=== PATIENT | female | born 1995 | race Caucasian/White ===

== ENCOUNTER 2020-08-06 18:19 | Observation (INO) | payer BC, OTHER ==
[~2020-08-06 18:19] MED LIST: PHENYLEPHRINE-NS 100 MCG/ML 10 ML SYRINGE ONE
[2020-08-06] MEDS ORDERED: hydrALAZINE 20 MG/ML VIAL SLOW IVP PRN (18:53)
[2020-08-06] MEDS ORDERED: Butorphanol Tartrate 1 MG/ML VIAL SLOW IVP PRN (18:54)
[2020-08-06] MEDS ORDERED: Lactated Ringer's 1,000 ML IV SCH (19:00)
[2020-08-06 19:25] LABS: #Eosinphils 0.1 thou/uL (0.0-0.7); #Lymphocytes 1.7 thou/uL (1.20-3.40); #Monocytes 0.6 thou/uL (0.11-0.59); #Neutrophils 8.8 thou/uL (1.40-6.50); %Basophils 0.3 % (0.0-1.0); %Eosinophils 0.5 % (0.0-10.0); %Lymphocytes 15.5 % (21.0-51.0); %Monocytes 5.4 % (0.0-10.0); %Neutrophils 78.3 % (42.0-75.0); Mean Corpuscular HGB CONC 34.6 g/dL (32.0-36.0); Mean Corpuscular Hemoglobin 30.9 pg (27.0-31.0); Mean Corpuscular Volume 89.2 fL (78.0-98.0); Mean Platelet Volume 8.3 fL (7.4-10.4); Platelet Count 226 thou/uL (130-400); RBC Distribution Width 12.3 % (11.5-14.5); Red Blood Cell (RBC) Count 3.89 mill/uL (4.20-5.40); White Blood Cell (WBC) Count 11.2 thou/uL (4.8-10.8)
[2020-08-06] MEDS ORDERED: Morphine 4 MG/ML VIAL SLOW IVP PRN (19:44)
[2020-08-06] MEDS: Lactated Ringer's 1,000 ML IV SCH (19:48)
[2020-08-06 19:54] VITALS: BMI 24.8
[2020-08-06 20:06] LABS: Bilirubin Negative (Negative); Blood, Urine Trace (Negative); Clarity Extra Turbid (Clear); Glucose, Urine (Dipstick) Normal (Negative); Ketone, Urine 20 mg/dL (Negative); Leukocyte Negative Leu/uL (Negative); Nitrite Negative (Negative); Protein, Urine (Dipstick) 20 mg/dL (Neg-Trace); RBC/HPF 0-3 HPF (0-3); Specific Gravity, Urine 1.019 (1.002-1.036); Squamous Epithelial 0-3 HPF (0-3); Urobilinogen Normal mg/dL (Less than 2); pH, Urine 7.5 (5.0-9.0)
[2020-08-06 20:17] LABS: Bacteria/HPF None Seen HPF (None Seen)
[2020-08-06] MEDS ORDERED: Promethazine HCl 12.5 MG in Sodium Chloride 0.9% 50 ML IVPB PRN (21:02)
[2020-08-06] MEDS: Morphine 4 MG/ML VIAL SLOW IVP PRN (21:04)
--- NOTE | 2020-08-06 21:06 | PDOC.LDHP ---
Labor and Delivery H&P Chief complaint: other (flank pain) HPI: 24 yo WF presents c/o severe flank pain since 5PM. +nausea, occ. dysuria. Denies bleeding or SROM. Current gestational age (weeks): 20 Due date: 12/20/20 Dating criteria: last menstrual period Grav: 2 Para: 1 Current complications: none (PNC with Dr. Simeon) Abnormal US findings: No Past Medical History: none Current medications: pre- vitamins Previous surgical history: low tranverse CS Allergies/Adverse Reactions: Allergies Allergy/AdvReac Type Severity Reaction Status Date / Time No Known Allergies Allergy Verified 01/20/14 04:07 Social history: none - Physical Exam Vital signs reviewed and normal: yes General: other (in severe pain) Heart: RRR Lungs: CTAB Abdomen: gravid Extremeties: trace edema [place] contractions every: 0 - Assessment 20 week IUP intractable flank pain USG shows R hydronephrosis with no ureteral jet - Plan Plan: other (Urology consult tonight- discussed by phone with Dr. Kennedy)
--- NOTE | 2020-08-06 21:08 | ULT ---
US Renal Bilateral STANDARD History: Pelvic pain Comparison: Renal ultrasound 2014 Findings: Moderate to severe right-sided hydronephrosis relatively similar to 2014. Urinary bladder appears unremarkable. No right-sided ureteral jet is visualized. Left-sided ureteral jet is present. Left kidney is without mass, hydronephrosis or abnormal calcifications. Impression: Moderate to severe right-sided hydronephrosis similar to 2014.
--- NOTE | 2020-08-06 21:10 | ULT ---
US OB Ltd History: Flank pain Comparison: None. Findings: Real-time grayscale, color and spectral analysis of the gravid uterus was performed. Normal single viable uterine with average ultrasound age 21 week 3 day with estimated date of delivery December 14, 2020. Estimated weight is 15 ounces, 84th percentile. Biometry: Biparietal diameter: 5.14 cm, 21 week 4 day Head circumference: 18.97 cm, 21 week 2 day Abdominal circumference: 16.87 cm, 21 week 6 day Femur length: 3.39 cm, 20 week 5 day Heart rate documented at 144 bpm. position is breech and the placenta is anterior. Cervix is closed and measures 3.5 cm in length. Impression: Normal single viable intrauterine .
--- NOTE | 2020-08-06 22:07 | CON ---
DATE OF CONSULTATION: 08/06/2020 REASON FOR CONSULTATION: Flank pain. CHIEF COMPLAINT: Flank pain. HISTORY OF PRESENT ILLNESS: This is a 24-year-old female 20 weeks with acute onset right-sided flank pain this evening, 10/10 with nausea. She presented to Labor and Delivery, where she was evaluated with ultrasound showing [id number] right hydronephrosis with no right ureteral jet. Normal left kidney with positive left ureteral jet. She continues to have severe pain despite narcotic medications with nausea. She denies fevers, dysuria, or hematuria. PAST MEDICAL HISTORY: Exercise-induced asthma. PAST SURGICAL HISTORY: None. . SOCIAL HISTORY: No substance abuse. MEDICATIONS: vitamins. REVIEW OF SYSTEMS: Twelve-point review of systems is negative except as mentioned above. ALLERGIES: NO KNOWN ALLERGIES. PHYSICAL EXAMINATION: VITAL SIGNS: Afebrile. Vitals are stable. GENERAL: The patient is in obvious distress, but does answer questions. HEENT: Head, normocephalic and atraumatic. Extraocular movements are intact. Sclerae are nonicteric. NECK: Supple. Trachea is midline. LUNGS: Unlabored breathing. Symmetric chest expansion. HEART: Regular rate and rhythm. ABDOMEN: Soft, nontender, nondistended. Gravid uterus. No appreciable flank tenderness or suprapubic tenderness. SKIN: Warm and dry. NEUROLOGIC: Alert and oriented x3. PSYCHIATRIC: Normal mood and affect. LABORATORY DATA: Reviewed. White count 11, hemoglobin 12. UA; no rbc's, negative leukocyte and nitrite. Ultrasound reviewed showing [id number] right- sided hydronephrosis. Prior US from 2013 showed B hydro ASSESSMENT AND PLAN: Right hydronephrosis, possible ureteral stone. Due to the fact that the patient's pain is uncontrolled with medications, we will be taking her to the operating room for cystoscopy with stent placement. We did discuss this in detail including alternatives, postop course, risks of bleeding, infection, pain, demise, inability to bypass the stone to place a stent, and need for further surgeries to remove stone. She expressed understanding and wishes to proceed. Job ID: [id number] [facility]
[2020-08-06] MEDS ORDERED: Iothalamate Meglumine 60% 50 ML VIAL FS ONE (22:09)
--- NOTE | 2020-08-06 22:50 | RAD ---
XR IVP Retrograde History: Right stent placement Comparison: Ultrasound same day Findings: Interval placement of a right-sided ureteral stent with moderate to severe hydronephrosis. Impression: Single fluoroscopic image for stent placement.
[2020-08-06] MEDS ORDERED: Promethazine HCl 25 MG/ML VIAL IM PRN (22:53)
[2020-08-06] MEDS ORDERED: Morphine Sulfate 2 MG/ML SYRINGE SLOW IVP PRN (22:53)
[2020-08-06] MEDS ORDERED: Promethazine HCl 25 MG/ML VIAL SLOW IVP PRN (22:53)
[2020-08-06] MEDS ORDERED: Ondansetron HCl/PF 4 MG/2 ML Vial IVP PRN (22:53)
--- NOTE | 2020-08-06 23:11 | OP ---
DATE OF PROCEDURE: 08/06/2020 PREOPERATIVE DIAGNOSIS: Right hydronephrosis. POSTOPERATIVE DIAGNOSIS: Right hydronephrosis. PROCEDURE: Cystoscopy with right retrograde pyelogram and 4.8 x 28 double-J ureteral stent placement. ANESTHESIA: Spinal. COMPLICATIONS: None. ESTIMATED BLOOD LOSS: None. SPECIMEN: None. DESCRIPTION OF PROCEDURE: After informed consent, the patient was brought to the operating room. Spinal anesthesia was established. She was then transferred to the table, prepped and draped in the lithotomy position. A time-out was performed showing correct patient, site, and procedure. Preoperative antibiotics were administered. I began by inserting the rigid cystoscope through the urethra into the bladder noting normal urethra and normal bladder mucosa. The right ureteral orifice was cannulated with a Pollack catheter and a retrograde pyelogram was performed showing normal ureter up to the mid ureter just above the iliac vessels with hydroureter with tortuous proximal ureter and significant right hydronephrosis. I had great difficulty obtaining access into the right kidney due to the tortuosity of the proximal ureter, but using a Sensor wire, Pollack catheter, Amplatz wire, I was able to access the kidney and placed a 4.8 x 28 double-J ureteral stent over the wire with a curl in the kidney and curl in the bladder under fluoroscopic guidance. Completion images were sent. Her bladder was then drained. She was awoken from anesthesia, transferred back to her hospital bed, taken to PACU in stable condition, where she will return to Labor and Delivery. Job ID: [id number]
[2020-08-07] MEDS ORDERED: Tamsulosin HCl 0.4 MG CAP PO SCH ×2 (00:15→21:00)
[2020-08-07] MEDS: Lactated Ringer's 1,000 ML IV SCH (01:01)
[2020-08-07] MEDS ORDERED: Sodium Chloride 0.9% 10 ML ONE ×2 (01:07→04:55)
[2020-08-07] MEDS: Morphine 4 MG/ML VIAL SLOW IVP PRN ×2 (01:10→05:06)
[2020-08-07 07:59] VITALS: BP 113/66; TEMP 97.8
--- NOTE | 2020-08-07 08:40 | PRG ---
DATE OF SERVICE: 08/07/2020 SUBJECTIVE: Right flank pain has almost completely resolved after stent placement. No fevers or nausea overnight. She reports minimal to no bladder irritation. Her Catalan catheter remains, which was placed due to her spinal anesthesia yesterday. OBJECTIVE: VITAL SIGNS: Afebrile, vitals stable. Good urine output. GENERAL: No acute distress. LUNGS: Unlabored breathing. ABDOMEN: Soft. No flank tenderness. No suprapubic tenderness. GENITOURINARY: Catalan catheter draining mildly hematuric urine. SKIN: Warm and dry. ASSESSMENT AND PLAN: Postoperative day #1, right ureteral stent placement for hydronephrosis secondary to either uterine obstruction or stone. Ready for discharge home. Okay to discharge from my standpoint. I will prescribe tamsulosin and Levsin for bladder irritation. I will see her in 3 weeks to begin planning stent exchange at 24 weeks' gestation. Job ID: [id number]
[2020-08-07 13:28] LABS: SARS-CoV-2 MS2 Positive; SARS-CoV-2 N Gene Negative; SARS-CoV-2 S Gene Negative; SARS-CoV-2 by NAA Not Detected (NotDetected); SARS-CoV-2 orf1ab Negative
--- NOTE | 2020-08-08 00:47 | DIS ---
DATE OF ADMISSION: 08/06/2020 DATE OF DISCHARGE: 08/07/2020 ADMITTING DIAGNOSES: 1. Intrauterine at 20 weeks. 2. Severe flank pain. DISCHARGE DIAGNOSIS: Right hydronephrosis with signs of obstruction resolved with stent placement. CONSULTATIONS: Urology. PROCEDURE: Right ureteral stent placement. HOSPITAL COURSE: The patient is a 24-year-old, G2, P1 female with an intrauterine at 20 weeks, presenting to the emergency room with concerns of acute onset severe flank pain. After evaluation, the patient was noted to have right hydronephrosis with no ureteral jets on imaging. With concerns of an obstructive process, Urology was consulted, who after evaluation recommended stent placement, which was done yesterday. Since placement of the stent, the patient reports her symptoms have nearly resolved or her pain is much improved. Urology is comfortable letting her go home at this point in time, now with tamsulosin and Levsin and instructions to follow up in the outpatient setting in three weeks. Vital signs today, temperature is 97.8, pulse is 77, blood pressure is 113/66, respiratory rate of 18, saturating 98% on room air. In general, she appears to be in no acute distress. She is alert, oriented, cooperative, and pleasant to interact with. She is being discharged home on the medications recommended by Dr. Kennedy, who has by report called these medications out already. She will follow up with Dr. Simeon, her primary OB, on as scheduled and with Dr. Kennedy in three weeks. Job ID: [id number]
== END 2020-08-07 12:21 | disposition home health service (06) ==
LOC: L&D/OP 18:19 → L&D 21:40 → 3SW 23:25
PROVIDERS: ADMIT Obstetrics & Gynecology; ATTEND Obstetrics & Gynecology
PROC: 0T768DZ Dilation of Right Ureter with Intraluminal Device, Via Natural or Artificial Opening Endoscopic (ICD-10-PCS; principal; 2020-08-07)
DX: O99.89 Other specified diseases and conditions complicating pregnancy, childbirth and the puerperium (principal); N13.30 Unspecified hydronephrosis; Z3A.20 20 weeks gestation of pregnancy; Z20.828 Contact with and (suspected) exposure to other viral communicable diseases
CPT/HCPCS: 51701; 74420; 76770; 76815; 81003; 81015; 85025; 87635; 96361; 96374; 96376; 99285; G0378; J0595; J2270; J2550; U0003

== ENCOUNTER 2020-08-31 15:46 | Outpatient (CLI) | payer BC, OTHER ==
[2020-09-01 12:52] LABS: SARS-CoV-2 MS2 Positive; SARS-CoV-2 N Gene Negative; SARS-CoV-2 S Gene Negative; SARS-CoV-2 by NAA Not Detected (NotDetected); SARS-CoV-2 orf1ab Negative
== END 2020-08-31 15:47 | disposition home or self-care (01) ==
LOC: LABBT 15:46
PROVIDERS: ATTEND Urology
DX: N20.1 Calculus of ureter (principal); Z20.828 Contact with and (suspected) exposure to other viral communicable diseases
CPT/HCPCS: 87635; U0003

== ENCOUNTER 2020-09-05 12:06 | Day surgery (SDC) | payer BC, OTHER ==
[2020-09-04 11:57] VITALS: BMI 24.2
[2020-09-05] MEDS ORDERED: Iothalamate Meglumine 60% 50 ML VIAL FS ONE (12:57)
--- NOTE | 2020-09-05 13:43 | RAD ---
EXAM: XR IVP Retrograde PROVIDED CLINICAL HISTORY: Right ureteral stent placement. COMPARISON: 08/06/2020 FINDINGS/IMPRESSION: Single provided image demonstrates a right ureteral stent in place. There is evidence of an intrauter ine gestation in breech presentation. Correlation with intraoperative findings is recommended.
[2020-09-05] MEDS ORDERED: Oxybutynin 5 MG TAB ONE (15:17)
--- NOTE | 2020-09-05 19:46 | OP ---
DATE OF PROCEDURE: 09/05/2020 PREOPERATIVE DIAGNOSIS: Right hydronephrosis. POSTOPERATIVE DIAGNOSIS: Right hydronephrosis. PROCEDURE PERFORMED: Cystoscopy with right ureteral stent exchange. ANESTHESIA: Spinal. COMPLICATIONS: None. BLOOD LOSS: None. SPECIMEN: None. DESCRIPTION OF PROCEDURE: After informed consent, the patient was taken to the operating room and spinal anesthesia was established. She was transferred to the operating table on her own power. A time-out was performed, ensuring correct patient, site, and procedure. Preoperative antibiotics were administered. She was prepped and draped in the lithotomy position. The rigid cystoscope was advanced through the urethra into the bladder. The indwelling right ureteral stent was grasped and brought out through the urethral meatus. I attempted to pass a wire through this, however, it was heavily encrusted and I was unable to do so. The scope was then reinserted and a wire passed alongside the stent up to the level of the previously seen curl in the right renal pelvis. The previously placed stent was removed and then a 6 x 26 double-J ureteral stent was positioned over the wire with a curl in the kidney and curl in the bladder under fluoroscopic guidance. Total fluoro time was 1 second. Her bladder was then drained. She was brought down from the lithotomy position, transferred back to her hospital bed, and taken to PACU in stable condition, where she will discharge home upon recovery. Job ID: [id number]
== END 2020-09-05 17:50 | disposition home or self-care (01) ==
LOC: SDC 12:06
PROVIDERS: ATTEND Urology
PROC: 0TP98DZ Removal of Intraluminal Device from Ureter, Via Natural or Artificial Opening Endoscopic (ICD-10-PCS; principal; 2020-09-05)
PROC: 0T768DZ Dilation of Right Ureter with Intraluminal Device, Via Natural or Artificial Opening Endoscopic (ICD-10-PCS; principal; 2020-09-05)
DX: O99.891 Other specified diseases and conditions complicating pregnancy (principal); N13.30 Unspecified hydronephrosis; N39.41 Urge incontinence; Z3A.24 24 weeks gestation of pregnancy; Z79.899 Other long term (current) drug therapy
CPT/HCPCS: 74420; J0690

== ENCOUNTER 2020-10-03 06:46 | Outpatient (CLI) | payer BC, OTHER ==
[2020-10-03 09:58] LABS: Bilirubin Neg (Negative); Blood, Urine 250 (Negative); Glucose, Urine (Dipstick) Normal (Negative); Ketone, Urine Negative (Negative); Leukocyte 500 (Negative); Nitrite Negative (Negative); Protein, Urine (Dipstick) 100 mg/dl (Neg-Trace); Specific Gravity, Urine 1.015 (1.002-1.036); Urobilinogen Normal mg/dL (Less than 2)
[2020-10-03 10:00] LABS: Clarity Cloudy (Clear)
[2020-10-03 10:12] LABS: Bacteria/HPF 2+ HPF (None Seen); RBC/HPF Greater than 50 HPF (0-3); WBC/HPF 21-50 HPF (0-3)
[2020-10-03 22:24] LABS: SARS-CoV-2 MS2 Positive; SARS-CoV-2 N Gene Negative; SARS-CoV-2 S Gene Negative; SARS-CoV-2 by NAA Not Detected (NotDetected); SARS-CoV-2 orf1ab Negative
== END 2020-10-03 06:47 | disposition home or self-care (01) ==
LOC: LABBT 06:46
PROVIDERS: ATTEND Urology
DX: Z01.812 Encounter for preprocedural laboratory examination (principal); Z20.828 Contact with and (suspected) exposure to other viral communicable diseases; N20.1 Calculus of ureter
CPT/HCPCS: 81001; 87086; 87635; U0003

== ENCOUNTER 2020-10-06 06:00 | Day surgery (SDC) | payer BC, OTHER ==
[2020-10-05 09:30] VITALS: BMI 26.8
[2020-10-06] MEDS ORDERED: Iothalamate Meglumine 60% 50 ML VIAL FS ONE (07:10)
--- NOTE | 2020-10-06 08:55 | RAD ---
EXAM: Retrograde IVP HISTORY: Right ureteral stent placement and stone manipulation COMPARISON: 09/05/2020 FINDINGS/IMPRESSION: Limited intraoperative fluoroscopic views of the retrograde IVP were submitted f or interpretation. A wire is seen in the right renal collecting system. No obvious calcifications are seen. A spine is seen in the left abdomen with a head in the pelvis.
[2020-10-06] MEDS ORDERED: PROPOFOL 200 MG/20 ML VIAL ONE (12:30)
[2020-10-06] MEDS ORDERED: Dexamethasone 20 MG/5 ML VIAL ONE (12:30)
--- NOTE | 2020-10-07 08:17 | OP ---
DATE OF PROCEDURE: 10/06/2020 PREOPERATIVE DIAGNOSIS: Right hydronephrosis. POSTOPERATIVE DIAGNOSIS: Right ureteral stone. PROCEDURES PERFORMED: Right ureteroscopy, laser lithotripsy, basket extraction of stone, 4.8 x 26 double-J ureteral stent placement with string. ANESTHESIA: Spinal. COMPLICATIONS: None. ESTIMATED BLOOD LOSS: None. SPECIMEN: Stone fragments. DESCRIPTION OF PROCEDURE: After informed consent, the patient was taken to the operating room. Spinal anesthesia was established. She was then transferred over to the operating table. Preoperative antibiotics were administered. She was prepped and draped in the lithotomy position. The rigid cystoscope was advanced through the urethra into the bladder. The indwelling stent was grasped and brought out through the urethral meatus, noting significant calcifications of the distal curl of the stent. The scope was then reinserted and a wire passed alongside the stent into the ureter. The stent was then removed in its entirety, noting mild calcification of the proximal curl. The semi-rigid ureteroscope was then advanced through the urethra into the bladder and into the right ureter. This was passed into the proximal ureter where a stone was identified. This was treated with a 365 micron laser fiber and broken into several small fragments. These were all removed with the 1.9 cm Nitinol basket. The scope was then passed up to the level of the renal pelvis, ensuring that the wire was placed properly. The scope was then carefully withdrawn, noting no further stone fragments or abnormalities in the ureter. A 4.8 x 26 double-J ureteral stent was passed over the wire. One image was taken to ensure proper placement of the proximal curl. The strings were taped to her suprapubic region, for her to remove in 5 days. She was then transferred back to her hospital bed, and taken to PACU in stable condition, where she will be discharged home upon recovery. Job ID: [id number]
== END 2020-10-06 10:30 | disposition home or self-care (01) ==
LOC: SDC 06:00
PROVIDERS: ATTEND Urology
PROC: 0TC38ZZ Extirpation of Matter from Right Kidney Pelvis, Via Natural or Artificial Opening Endoscopic (ICD-10-PCS; principal; 2020-10-06)
PROC: 0T768DZ Dilation of Right Ureter with Intraluminal Device, Via Natural or Artificial Opening Endoscopic (ICD-10-PCS; principal; 2020-10-06)
DX: O99.891 Other specified diseases and conditions complicating pregnancy (principal); N13.2 Hydronephrosis with renal and ureteral calculous obstruction; O99.343 Other mental disorders complicating pregnancy, third trimester; F41.9 Anxiety disorder, unspecified; F32.9 Major depressive disorder, single episode, unspecified; Z3A.28 28 weeks gestation of pregnancy; Z79.899 Other long term (current) drug therapy
CPT/HCPCS: 74420; 82365; 88300; J0690; J1100; J2704

== ENCOUNTER 2020-11-23 16:15 | Observation (INO) | payer BC, OTHER ==
[2020-11-23 16:33] VITALS: BMI 29.0
[2020-11-23] MEDS ORDERED: hydrALAZINE 20 MG/ML VIAL SLOW IVP PRN (17:09)
[2020-11-23] MEDS: Acetaminophen 500 MG TAB PO PRN (17:50)
[2020-11-23 17:59] LABS: Amphetamine Not Detected (NotDetected); Barbiturates Screen Not Detected (NotDetected); Benzodiazepine Screen Not Detected (NotDetected); Cocaine Metabolite Screen Not Detected (NotDetected); Medtox Control Line Valid? VALID (VALID); Medtox Reader # READER 1; Methadone Not Detected (NotDetected); Methamphetamine Not Detected (NotDetected); Opiate Screen Not Detected (NotDetected); Oxycodone Screen Not Detected (NotDetected); Phencyclidine (PCP) Not Detected (NotDetected); THC/Cannabinoid Screen Not Detected (NotDetected); Tricyclic Screen Not Detected (NotDetected)
--- NOTE | 2020-11-23 18:01 | HP ---
TIME: 1726. LOCATION: Triage A. CHIEF COMPLAINT: Headache and blood pressure high at home. The patient of Dr. Simeon. EGA 36 weeks and 1 day. HISTORY OF PRESENT ILLNESS: This patient is a 24-year-old G2, P1, who saw Dr. Simeon earlier in the morning and stated that she had "borderline blood pressures" in the office. She was told to check her pressures at home and return to the hospital if they were elevated and/or she developed any associated PIH symptoms. She states at home her blood pressures were 150s over 90s. She stated that she came here because of that finding and because she had a headache on the front side of her head, but no visual changes. No right upper quadrant pain. No loss of consciousness. She also denies contractions or leakage of fluid and she has good movement. She states that the headache is mild and she has not taken any pain medication for it. She does have a history of a previous about 6 years ago for breech. REVIEW OF SYSTEMS: GENERAL: No sick contacts. No fever. No chills. No COVID exposure. PULMONARY: No shortness of breath. CARDIOVASCULAR: No chest pain. EXTREMITIES: No unusual swelling or pain, although she does state that her ankles had been a little bit more swollen than usual. This was bilateral and one was not more swollen than the other. PAST MEDICAL HISTORY: Negative. MEDICATIONS: vitamins. (Not on ASA) ALLERGIES: EXERCISE-INDUCED ASTHMA, WHICH WAS WORSE A CHILD AND BETTER NOW AND SHE DOES NOT USE ANY INHALERS. PAST SURGICAL HISTORY: for breech 6 years ago. SOCIAL HISTORY: She denies alcohol, tobacco, or other substance use. It is important to note that on review of the records, she does have an entry from June (June 19) that shows that the urine drug screen was "positive," but nothing else is mentioned from that. PHYSICAL EXAMINATION: GENERAL: She is in no acute distress and resting comfortably in bed. Her is at bedside. VITAL SIGNS: Blood pressures here were 153/91 and then 142/77, then 137/77. ABDOMEN: Soft and nontender. She does have a Pfannenstiel skin incision. Uterus is appropriate for gestational age. Cervical exam was deferred as there was no complaint of labor, VB, or ROM. EXTERNAL MONITOR: strip was reviewed and it is reactive with accels and moderate variability. Baseline is around 130s to 140s. There are no contractions on tocodynamometer. INTERVENTIONS ORDERED: I have ordered a complete metabolic profile. I have ordered urine protein and urine creatinine for ratio. I have ordered a CBC. I have ordered a UDS just as part of hypertension workup and because the finding noted from June in the record. I have taken her off the strip because baby is reactive. ASSESSMENT: A 24-year-old G2, P1 with a previous section 6 years ago, who desires repeat here for mild range of blood pressure elevation with a headache. By definition, this makes her severe; however, because headache has very poor specificity, and as clinically she looks well, I have decided to treat her with Tylenol and keep her in-house for overnight observation. Plan: OBSERVATION: I did explain this to her. I did also mention that we could perform a now based on the headache, but as that is her only symptom, and as she is under 37 weeks, I would recommend just watching her blood pressures until tomorrow. I have ordered labs to see if there are any lab abnormalities that would support a severe diagnosis. Dr. Simeon has been told of this plan, and is aware and will see her tomorrow morning. Job ID: [id number] [facility]
[2020-11-23 18:41] LABS: Syphilis Antibody Nonreactive (Nonreactive); Syphilis Antibody Index 0.02 S/CO (<1.00 Non-Reactive)
[2020-11-23 18:42] LABS: ALT (SGPT) 7 U/L (8-55); AST (SGOT) 12 U/L (5-34); Albumin 3.4 g/dL (3.5-5.0); Alkaline Phosphatase 123 U/L (40-110); Anion Gap 16 mmol/L (10-20); BUN (Urea Nitrogen) 11 mg/dL (7.0-18.7); Bilirubin, Total 0.2 mg/dL (0.2-1.2); Calc. Creatinine Clearance 173 mL/min (70-130); Carbon Dioxide 18 mmol/L (22-29); Chloride 106 mmol/L (98-107); Globulin 2.7 g/dL (2.4-3.5); Glucose 77 mg/dL (70-105); Potassium 4.1 mmol/L (3.5-5.1); Protein, Total 6.1 g/dL (6.0-8.3); Sodium 136 mmol/L (136-145)
[2020-11-23 18:42] LABS: HBSAg Index 0.16 S/CO (0-0.99); HIV (1/2) Antibody/Antigen Non-Reactive (NonReactive); HIV 1/2 INDEX 0.09 S/CO (<1.00); Hep B Surf Ag Non-Reactive S/CO (NonReactive)
[2020-11-23 18:45] LABS: Calcium 8.6 mg/dL (7.8-10.44)
[2020-11-23 18:59] LABS: #Eosinphils 0.1 thou/uL (0.0-0.7); #Lymphocytes 1.9 thou/uL (1.20-3.40); #Monocytes 0.7 thou/uL (0.11-0.59); #Neutrophils 7.9 thou/uL (1.40-6.50); %Basophils 0.1 % (0.0-1.0); %Eosinophils 0.6 % (0.0-10.0); %Lymphocytes 17.8 % (21.0-51.0); %Monocytes 6.8 % (0.0-10.0); %Neutrophils 74.8 % (42.0-75.0); Hemoglobin 9.2 g/dL (12.0-16.0); Mean Corpuscular HGB CONC 33.7 g/dL (32.0-36.0); Mean Corpuscular Hemoglobin 27.4 pg (27.0-31.0); Mean Corpuscular Volume 81.3 fL (78.0-98.0); Mean Platelet Volume 8.9 fL (7.4-10.4); Platelet Count 209 thou/uL (130-400); RBC Distribution Width 12.1 % (11.5-14.5); Red Blood Cell (RBC) Count 3.35 mill/uL (4.20-5.40); White Blood Cell (WBC) Count 10.6 thou/uL (4.8-10.8)
--- NOTE | 2020-11-23 19:07 | PDOC.BPN ---
- Brief Progress Note Lab Check: CNC, CMP, negative. Urine Tox neg UP/U Cr ratio: 0.17
--- NOTE | 2020-11-24 08:23 | PDOC.LDPN ---
Labor & Delivery Progress Note - Subjective Subjective: comfortable - Objective Vital signs reviewed and normal: yes Abnormal vital signs: 130s systolic noted General: NAD - Assessment (1) 36 weeks gestation of Code(s): Z3A.36 - 36 WEEKS GESTATION OF Current Visit: Yes Status: Acute (2) History of section Code(s): Z98.89 - OTHER SPECIFIED POSTPROCEDURAL STATES * DO NOT USE * Current Visit: No Status: Chronic Plan: other -: HD2 after admit yesterday afternoon after mild range BP reported at home. BP sustained 130s with no sustained mild range noted and no severe range BP. Labs WNL. Pt with mild HARRELL yesterday but no HARRELL reported on questioning this AM. Likely DC later this AM if BP remain WNL. If mild range noted will discuss moving CS up to 37 weeks, at this time no criteria met for GHTN.
[2020-11-24] MEDS: Acetaminophen 500 MG TAB PO PRN (08:59)
[2020-11-24 11:22] VITALS: BP 130/70; TEMP 98.6
--- NOTE | 2020-11-24 12:08 | DIS ---
DATE OF ADMISSION: 11/23/2020 DATE OF DISCHARGE: 11/24/2020 ADMISSION DIAGNOSES: Thirty-six weeks, elevated blood pressure at home, previous section, headache. DISCHARGE DIAGNOSES: Thirty-six weeks, normal blood pressures, resolution of headache. HOSPITAL COURSE: Ms. Olga Cole was admitted on 11/23/2020 after reported blood pressure at home in the 140s/90s and a mild headache. She presented to Labor and Delivery and was evaluated by the OB hospitalist. She was noted to have normal CBC, normal CMP, and a normal protein-creatinine ratio. During her prolonged observation overnight, she had no elevated blood pressures. Her blood pressures were all within normal limits. Her headache resolved with rest and Tylenol. After her overnight stay, she was placed on monitoring with reassuring monitoring. She did not have any complaints this morning. She was discharged home in good condition with plans for close followup as outpatient. She has been given instructions to call my office for any blood pressure of 140/90 between now and her visit next week and to present to the hospital for a headache that does not resolve with Tylenol. Neurological symptoms increase in edema. Her blood pressure is 160/100. Discharge instructions were given and the followup plan is in place. Job ID: [id number]
== END 2020-11-24 11:47 | disposition home or self-care (01) ==
LOC: L&D/OP 16:15 → L&D 17:25
PROVIDERS: ADMIT Obstetrics & Gynecology; ATTEND Obstetrics & Gynecology
DX: O99.891 Other specified diseases and conditions complicating pregnancy (principal); R03.0 Elevated blood-pressure reading, without diagnosis of hypertension; R51.9 Headache, unspecified; O34.219 Maternal care for unspecified type scar from previous cesarean delivery; Z3A.36 36 weeks gestation of pregnancy; Z36.85 Encounter for antenatal screening for Streptococcus B
CPT/HCPCS: 36415; 80053; 80306; 82570; 84156; 85025; 86780; 86900; 86901; 87081; 87340; 87389; 99285; G0378

== ENCOUNTER 2020-11-28 19:20 | Inpatient (IN) | payer BC, OTHER ==
[2020-11-28 20:00] VITALS: BMI 29.0
[2020-11-28] MEDS ORDERED: hydrALAZINE 20 MG/ML VIAL SLOW IVP PRN ×2 (20:40→22:33)
[2020-11-28] MEDS ORDERED: Fioricet 325/50/40 mg Tablet PO PRN (20:41)
[2020-11-28 21:02] LABS: #Eosinphils 0.1 thou/uL (0.0-0.7); #Monocytes 0.8 thou/uL (0.11-0.59); #Neutrophils 7.2 thou/uL (1.40-6.50); %Basophils 0.1 % (0.0-1.0); %Eosinophils 0.5 % (0.0-10.0); %Lymphocytes 19.9 % (21.0-51.0); %Monocytes 7.8 % (0.0-10.0); %Neutrophils 71.6 % (42.0-75.0); Hemoglobin 9.6 g/dL (12.0-16.0); Mean Corpuscular Hemoglobin 26.8 pg (27.0-31.0); Mean Corpuscular Volume 81.3 fL (78.0-98.0); Mean Platelet Volume 8.5 fL (7.4-10.4); Platelet Count 231 thou/uL (130-400); RBC Distribution Width 12.2 % (11.5-14.5); Red Blood Cell (RBC) Count 3.59 mill/uL (4.20-5.40)
[2020-11-28 21:25] LABS: Anion Gap 11 mmol/L (10-20); BUN (Urea Nitrogen) 9 mg/dL (7.0-18.7); Carbon Dioxide 24 mmol/L (22-29); Chloride 106 mmol/L (98-107); Potassium 4.2 mmol/L (3.5-5.1); Sodium 137 mmol/L (136-145)
[2020-11-28 21:26] LABS: ALT (SGPT) 9 U/L (8-55); AST (SGOT) 14 U/L (5-34); Albumin 3.4 g/dL (3.5-5.0); Alkaline Phosphatase 135 U/L (40-110); Bilirubin, Total 0.2 mg/dL (0.2-1.2); Calc. Creatinine Clearance 169 mL/min (70-130); Calcium 8.7 mg/dL (7.8-10.44); Glucose 83 mg/dL (70-105); Protein, Total 6.4 g/dL (6.0-8.3); Uric Acid 3.6 mg/dL (2.6-6.0)
[2020-11-28 21:49] LABS: Bacteria/HPF 2+ HPF (None Seen); Bilirubin Negative (Negative); Blood, Urine Negative (Negative); Clarity Clear (Clear); Glucose, Urine (Dipstick) Normal (Negative); Ketone, Urine Negative (Negative); Leukocyte 75 Leu/uL (Negative); Nitrite Negative (Negative); Protein, Urine (Dipstick) Negative (Neg-Trace); RBC/HPF 0-3 HPF (0-3); Renal Epithelial 0-3 HPF (None Seen); Urobilinogen Normal mg/dL (Less than 2); pH, Urine 6.5 (5.0-9.0)
[2020-11-28] MEDS ORDERED: Ondansetron PF 4 MG/2 ML Vial IVP PRN (22:33)
[2020-11-28] MEDS ORDERED: Bicitra 30 ML UDCUP PO PRN (22:33)
[2020-11-28] MEDS ORDERED: Famotidine/PF 20 mg/2ml Vial SLOW IVP PRN (22:33)
[2020-11-28] MEDS ORDERED: CEFAZOLIN 2 GM in Premix Bag 1 BAG IVPB SCH (23:00)
[2020-11-29] MEDS: Lactated Ringer's 1,000 ML IV SCH ×3 (05:14→22:33)
[2020-11-29 05:43] LABS: HBSAg Index 0.19 S/CO (0-0.99); Hep B Surf Ag Non-Reactive S/CO (NonReactive)
[2020-11-29 06:23] LABS: Syphilis Antibody Nonreactive (Nonreactive); Syphilis Antibody Index 0.02 S/CO (<1.00 Non-Reactive)
[2020-11-29 06:35] LABS: Hemoglobin 9.4 g/dL (12.0-16.0); Mean Corpuscular HGB CONC 33.2 g/dL (32.0-36.0); Mean Corpuscular Hemoglobin 27.3 pg (27.0-31.0); Mean Corpuscular Volume 82.1 fL (78.0-98.0); Mean Platelet Volume 9.5 fL (7.4-10.4); Platelet Count 220 thou/uL (130-400); RBC Distribution Width 12.3 % (11.5-14.5); Red Blood Cell (RBC) Count 3.45 mill/uL (4.20-5.40); White Blood Cell (WBC) Count 8.3 thou/uL (4.8-10.8)
[2020-11-29 07:28] LABS: SARS-CoV-2 MS2 Positive; SARS-CoV-2 N Gene Negative; SARS-CoV-2 S Gene Negative; SARS-CoV-2 by NAA Not Detected (NotDetected); SARS-CoV-2 orf1ab Negative
[2020-11-29] MEDS ORDERED: Famotidine/PF 20 mg/2ml Vial ONE (09:10)
--- NOTE | 2020-11-29 10:40 | PDOC.LDPN ---
Labor & Delivery Progress Note - Subjective Subjective: other (HARRELL resolved) - Objective Abnormal vital signs: mild range BP overnight General: resting FHT: category 1 - Assessment (1) 37 weeks gestation of Code(s): Z3A.37 - 37 WEEKS GESTATION OF Current Visit: Yes Status: Acute (2) Gestational hypertension Code(s): O13.9 - GESTATIONAL HTN W/O SIGNIFICANT PROTEINURIA, UNSP TRIMESTER Current Visit: Yes Status: Acute (3) History of section Code(s): Z98.89 - OTHER SPECIFIED POSTPROCEDURAL STATES * DO NOT USE * Current Visit: No Status: Chronic Plan: other -: Plan for RCS today for GHTN @ 37 weeks, CATIE declined.
[2020-11-29] MEDS ORDERED: Oxytocin 10 UNITS/ML VIAL ONE (10:52)
[2020-11-29] MEDS ORDERED: Morphine PF 10 MG/10 ML VIAL ONE (10:52)
[2020-11-29] MEDS ORDERED: Phenylephrine 40 MG/NS 250 ML 250 ML ONE (10:53)
[2020-11-29] MEDS ORDERED: Promethazine HCl 25 MG SUPP PR PRN ×2 (12:27→19:30)
[2020-11-29] MEDS ORDERED: HYDROmorphone 2 MG/ML VIAL SLOW IVP PRN (12:27)
[2020-11-29] MEDS ORDERED: Meperidine HCl/PF 25 MG/ML VIAL SLOW IVP PRN (12:27)
[2020-11-29] MEDS ORDERED: diphenhydrAMINE 50 MG/ML VIAL IVP PRN ×2 (12:27→19:30)
[2020-11-29] MEDS ORDERED: Ondansetron HCl/PF 4 MG/2 ML Vial IVP PRN (12:27)
[2020-11-29] MEDS ORDERED: L&D-Morphine 4 MG/ML VIAL SLOW IVP PRN (12:27)
[2020-11-29] MEDS ORDERED: Ondansetron PF 4 MG/2 ML Vial IVP PRN ×3 (12:27→19:30)
[2020-11-29] MEDS ORDERED: Promethazine HCl 25 MG/ML VIAL IM PRN ×2 (12:27→19:30)
[2020-11-29] MEDS ORDERED: Naloxone HCl 0.4 mg/ml Vial IV PRN ×4 (12:27→19:30)
[2020-11-29] MEDS ORDERED: Naloxone HCl 0.4 mg/ml Vial IVP PRN ×2 (12:27)
[2020-11-29] MEDS ORDERED: Communication Order-Pharmacy FS SCH (12:30)
--- NOTE | 2020-11-29 12:40 | PDOC.OPDEL ---
OB Operative/Delivery Note Delivery Dr/Surgeon: Blanco Assist: Light Pre-Delivery Diagnosis: medically indicated induction (Prev CS, GHTN, declines TOLAC) Procedure/Post Delivery Dx: repeat low transverse CS Weeks gestation: 37 Anesthesia: spinal - Findings A Sex: male - Additional Findings/Plan Placenta delivered: spontaneous findings: low transverse hysterotomy without extension, normal uterus, normal tubes, normal ovaries Estimated blood loss: 600ml Post delivery plan: routine recovery
[2020-11-29] MEDS ORDERED: hydrALAZINE 20 MG/ML VIAL SLOW IVP PRN (15:38)
[2020-11-29] MEDS ORDERED: Lanolin Ointment 7 GM TUBE TOP PRN (15:38)
[2020-11-29] MEDS ORDERED: Ibuprofen 800 MG TAB PO SCH (15:38)
[2020-11-29] MEDS ORDERED: Bisacodyl 10 MG SUPP PR PRN (15:38)
[2020-11-29] MEDS ORDERED: HYDROcodone/Acetaminophen 5/325 mg Tablet PO PRN ×2 (15:38)
[2020-11-29] MEDS ORDERED: Adacel (T-DAP) 0.5 ML SYRINGE IM ONE (15:38)
[2020-11-29] MEDS ORDERED: NS / Oxytocin 40 units/1000ml 1,000 ML IV SCH (15:38)
[2020-11-29] MEDS ORDERED: diphenhydrAMINE 25 MG CAP PO PRN (15:38)
[2020-11-29] MEDS ORDERED: Acetaminophen 325 MG TAB PO PRN (15:38)
--- NOTE | 2020-11-29 15:49 | OP ---
DATE OF PROCEDURE: 11/29/2020 PREOPERATIVE DIAGNOSES: 1. Gestational hypertension. 2. Thirty-seven weeks. 3. Previous section, declines trial of labor. POSTOPERATIVE DIAGNOSES: 1. Gestational hypertension. 2. Thirty-seven weeks. 3. Previous section, declines trial of labor. PROCEDURE PERFORMED: Repeat low-transverse section. DISABILITY LIAISON OFFICER: Josie Galarza CNM. COMPLICATIONS: None. ESTIMATED BLOOD LOSS: 600 mL. QUANTITATIVE BLOOD LOSS: Pending at the time of dictation. ANESTHESIA: Spinal. OPERATIVE FINDINGS: 1. Low-transverse hysterotomy without extension. 2. Clear fluid. 3. Normal-appearing placenta and cord. 4. Vigorous male , Apgars and weight pending at the time of dictation. 5. Surgical site hemostatic. 6. Normal-appearing uterus, tubes, and ovaries bilaterally. PROCEDURE IN DETAILS: The patient was taken back to the OR with IV fluids running. Once she was in the OR, spinal anesthesia was obtained. The patient was then placed in dorsal supine position with a left lateral tilt. 2 g of Ancef were administered. A Catalan catheter was placed using sterile technique, and the abdomen was prepped and draped in normal fashion for section. Surgeons were gowned and gloved. Anesthesia was tested and found to be adequate. A Pfannenstiel skin incision was made across the previous Pfannenstiel skin incision scar. Skin incision was carried down through the subcutaneous tissue to the fascia. Once the fascia was reached, it was incised in the midline and extended superolaterally using curved Rowland scissors. Peng clamps were placed at the superior border of the fascia, which was sharply and bluntly dissected off the rectus abdominis muscles. In a similar fashion, they were placed at the inferior border of the fascia, which was dissected down towards the level of pubic symphysis. The rectus muscles and peritoneum were bluntly in the midline. They were stretched laterally and an Meng O retractor was placed into the peritoneal cavity for retraction, visualization, and protection of the wound. A bladder flap was created using a scalpel and the bladder was dissected away from the planned hysterotomy site. A low-transverse hysterotomy was made with a scalpel. The hysterotomy was bluntly entered and stretched using the Omer maneuver. Amniotomy was performed with clear fluid noted and the was delivered without difficulty from the vertex presentation through the hysterotomy. The nose and mouth were suctioned. The cord was doubly clamped and cut, and the was handed off to special care nurse, whose was in attendance. Cord blood was collected. The placenta was delivered. Uterus was temporally exteriorized, massaged to firm and cleared of clot and debris with clean dry sponge. The uterus was returned to the abdominal cavity. The hysterotomy was inspected with no extension noted. The hysterotomy was then closed with Monocryl suture in a running locked fashion. After closure of the hysterotomy was closely inspected with no areas of bleeding noted, the hysterotomy was copiously irrigated and suctioned dry. It was inspected again with no bleeding noted. The first count was then correct. The Meng O retractor was removed from the abdominal cavity. The rectus muscle and fascia were inspected with no bleeding noted. The rectus fascia was reapproximated from corner to corner with PDS suture. The subcutaneous tissue was irrigated and dried. Any small areas of bleeding were controlled with Bovie cauterization. The subcutaneous layer was reapproximated with plain gut suture. The skin was closed with 4-0 Monocryl and dressed with Dermabond dressing. The final count was correct. The uterus noted to be firm at the end of the case with normal lochia noted. The patient tolerated the procedure well and there were no complications. Job ID: [id number]
[2020-11-29] MEDS ORDERED: Ketorolac Tromethamine 30 MG/ML VIAL IVP PRN ×2 (18:30→19:30)
[2020-11-29] MEDS ORDERED: NO PO,IM,IV OR SC NARCOTICS FOR 12HR EXCEPT BY ANESTHESIA PO SCH (19:30)
[2020-11-29] MEDS ORDERED: Hydrocerin (Eucerin) Cream 120 gm Jar TOP PRN (19:30)
[2020-11-29] MEDS: Ferrous Sulfate 325 MG TAB PO SCH (21:30)
[2020-11-29] MEDS: Docusate Calcium (SURFAK) 240 MG CAP PO SCH (21:30)
[2020-11-30 06:56] LABS: Hemoglobin 8.6 g/dL (12.0-16.0); Mean Corpuscular HGB CONC 33.5 g/dL (32.0-36.0); Mean Corpuscular Hemoglobin 27.2 pg (27.0-31.0); Mean Corpuscular Volume 81.3 fL (78.0-98.0); Mean Platelet Volume 8.8 fL (7.4-10.4); Platelet Count 211 thou/uL (130-400); RBC Distribution Width 12.1 % (11.5-14.5); Red Blood Cell (RBC) Count 3.15 mill/uL (4.20-5.40); White Blood Cell (WBC) Count 13.7 thou/uL (4.8-10.8)
[2020-11-30] MEDS ORDERED: HYDROcodone/Acetaminophen 5/325 mg Tablet PO PRN (07:25)
--- NOTE | 2020-11-30 08:18 | PDOC.PP ---
Post Progress Note Post Day #: 1 Subjective: doing well, no concerns, minimal lochia, pain controlled. PO intake tolerated: yes Flatus: yes Ambulation: yes Vital Signs (12 hours) Temp Pulse Resp BP Pulse Ox 11/30/20 08:16 98.1 F 80 20 119/64 97 11/30/20 04:30 98.3 F 72 18 131/70 98 11/30/20 00:00 98.0 F 68 18 144/72 H 98 Weight Weight 180 lb - Physical Examination General: NAD Cardiovascular: RRR Respiratory: non-labored breathing Abdominal: no distention Skin: CS incision dry & intact (dressing cdi) Neurological: no gross focal deficits Psychiatric: A&Ox3, normal affect Result Diagrams: 11/30/20 06:30 11/28/20 20:55 Additional Labs: Post Labs Hep Bs Antigen Non-Reactive S/CO (NonReactive) 11/28/20 22:33 Blood Type O POSITIVE 11/29/20 04:15 (1) 37 weeks gestation of Code(s): Z3A.37 - 37 WEEKS GESTATION OF Status: Acute (2) Gestational hypertension Code(s): O13.9 - GESTATIONAL HTN W/O SIGNIFICANT PROTEINURIA, UNSP TRIMESTER Status: Acute (3) History of section Code(s): Z98.89 - OTHER SPECIFIED POSTPROCEDURAL STATES * DO NOT USE * Status: Chronic (4) Anemia affecting Code(s): O99.019 - ANEMIA COMPLICATING , UNSPECIFIED TRIMESTER Status: Acute - Assessment/Plan POD1 doing well sp RCS for GHTN @ 37 weeks, declined TOLAC. Iron for anemia, plan for DC tomorrow.
[2020-11-30] MEDS: Simethicone Chewable 80 MG TAB PO PRN ×2 (09:11→17:50)
[2020-11-30] MEDS: Prenatal Vitamin 1 TAB PO SCH (09:11)
[2020-11-30] MEDS: Docusate Calcium (SURFAK) 240 MG CAP PO SCH ×2 (09:11→21:17)
[2020-11-30] MEDS: Ferrous Sulfate 325 MG TAB PO SCH ×2 (09:12→21:17)
[2020-11-30] MEDS: HYDROcodone/Acetaminophen 5/325 mg Tablet PO PRN ×3 (09:14→20:32)
[2020-11-30] MEDS: Ibuprofen 800 MG TAB PO SCH (21:17)
[2020-12-01] MEDS: Ibuprofen 800 MG TAB PO SCH (05:33)
--- NOTE | 2020-12-01 07:41 | PDOC.PP ---
Post Progress Note Post Day #: Feels well. ready to go home PO intake tolerated: yes Flatus: yes Ambulation: yes Vital Signs (12 hours) Temp Pulse Resp BP Pulse Ox 12/01/20 05:30 97.8 F 80 15 135/76 11/30/20 23:40 98.3 F 76 15 126/62 11/30/20 19:49 98.7 F 78 16 131/61 98 Weight Weight 180 lb - Physical Examination Abdominal: no distention, appropriately TTP Result Diagrams: 11/30/20 06:30 11/28/20 20:55 Additional Labs: Post Labs Hep Bs Antigen Non-Reactive S/CO (NonReactive) 11/28/20 22:33 Blood Type O POSITIVE 11/29/20 04:15 - Assessment/Plan Doing well poat op day 2..Blood pressures normal. D/c home. F/u 2 and 6 weeks.
[2020-12-01] MEDS: HYDROcodone/Acetaminophen 5/325 mg Tablet PO PRN (07:46)
[2020-12-01] MEDS: Prenatal Vitamin 1 TAB PO SCH (07:47)
[2020-12-01] MEDS: Ferrous Sulfate 325 MG TAB PO SCH (07:47)
[2020-12-01] MEDS: Docusate Calcium (SURFAK) 240 MG CAP PO SCH (07:47)
[2020-12-01 07:54] VITALS: BP 125/76; TEMP 97.7
--- NOTE | 2020-12-04 06:49 | PQF ---
CLINICAL DOCUMENTATION CLARIFICATION FORM: Dear : Lela Boyd Date / Time: 12/04/20 06:48 Please exercise your independent, professional judgment in responding to the clarification form. Clinical indicators are provided on the bottom of this form for your review Please check appropriate box(es): [ ] Acute blood loss anemia [ ] Post-op anemia related to acute blood loss [ ] Anemia unspecified [ ] Other diagnosis, please specify [ ] Unable to determine Physician Signature: Date/Time: For continuity of documentation, please document condition throughout progress notes and discharge summary. Thank You. To be completed by CDI/Coding staff for physician review: Present Clinical Indicators - Signs / Symptoms / Labs Results and Location in Medical Record [x] Anemia affecting PN 11/30 [x] EBL 600ml Op Note 11/29 [x] BP: 11/3006=835/58 Vital Signs 11/30 [x] RBC=3.15 hgb=8.6 Hct=25.6 Laboratory 11/30 Present Risk Factors Results and Location in Medical Record [x] 37 weeks gestation Op Note 11/29 [x] s/p CS Op Note 11/29 Present Treatments Results and Location in Medical Record [x] Hematology Monitoring Laboratory 11/30 [x] IVF MAR 11/28 [x] Ferrous Sulfate 325mg Oral JAN 15 CDS/Oil Expeller Signature: Laverne Capps Phone #: [phone] Date/Time: 12/04/20 This is a permanent part of the Medical Record [facility]
== END 2020-12-01 12:00 | disposition home or self-care (01) | DRG 788 ==
LOC: L&D/OP 19:20 → L&D 11-29 07:00 → 3SW 11-29 15:50
PROVIDERS: ADMIT Obstetrics & Gynecology; ATTEND Obstetrics & Gynecology
PROC: 10D00Z1 Extraction of Products of Conception, Low, Open Approach (ICD-10-PCS; principal; 2020-11-29)
DX: O34.211 Maternal care for low transverse scar from previous cesarean delivery (principal); Z3A.37 37 weeks gestation of pregnancy; Z37.0 Single live birth; Z20.822 Contact with and (suspected) exposure to COVID-19; O99.344 Other mental disorders complicating childbirth; F41.9 Anxiety disorder, unspecified; F32.9 Major depressive disorder, single episode, unspecified; O13.4 Gestational [pregnancy-induced] hypertension without significant proteinuria, complicating childbirth; O90.81 Anemia of the puerperium; D64.9 Anemia, unspecified
CPT/HCPCS: 36415; 51702; 80053; 81001; 84550; 85025; 85027; 86780; 86850; 86900; 86901; 87340; 87635; 99285; J0690; J1885; J2270; J2405; S0028; U0003; U0005